=== PATIENT | female | born 1970 | race American Indian/Alaskan Native ===

== ENCOUNTER 2018-05-12 14:47 | Emergency (ER) | payer OTHER ==
[2018-05-12 14:56] VITALS: BP 137/86
[2018-05-12 15:23] LABS: Hemoglobin 11.2 gm/dl (10.1-14.3); Mean Corpuscular HGB Conc 32 % (30-34); Mean Corpuscular Volume 93 fl (79-97); Platelet Count 301 K/mm3 (140-440); Red Blood Count 3.75 M/mm3 (3.65-5.03); Red Cell Distribution Width 16.7 % (13.2-15.2)
--- NOTE | 2018-05-12 16:30 | Emergency Department Report ---
ED Abdominal Pain HPI - General Chief Complaint: Vaginal Bleeding Stated Complaint: BLEEDING/FEELING FAINT Time Seen by Provider: 05/12/18 16:11 Source: patient Mode of arrival: Ambulatory Limitations: No Limitations - History of Present Illness Initial Comments: Patient is a 48-year-old Martiniquais female has had 6 months of heavy vaginal bleeding. Patient has been seen numerous times by her LACEMAKER Dr. Basurto. Patient is currently taking Provera twice a day. Patient was here approximately a week and half ago had a CT of the abdomen done showed she does have uterine fibroids. Patient is scheduled for another LACEMAKER appointment in approximately 2 weeks. Patient over the weekend several days ago as having increased bleeding with clots as well as a feeling of faintness. Patient had no shortness of breath or chest discomfort. Patient states the faint feeling as resolve slightly but she still having a great deal of lower abdominal cramps. Patient also states that it is still changing her sanitary napkin hourly she is now changing every 3-4 hours. - Related Data Previous Rx's Medication Instructions Recorded Last Taken Type HYDROcodone/ACETAMINOPHEN [Ballantine 1 each PO Q6HR PRN #12 tablet 04/16/18 Unknown Rx 7.5-325 Tablet] Sulfamethoxazole/Trimethoprim 1 each PO BID 10 Days #20 tablet 04/16/18 Unknown Rx [Bactrim Ds Tablet] HYDROcodone/APAP 5-325 [Ballantine 1 each PO Q4HR PRN #10 tablet 05/12/18 Unknown Rx 5/325] Ibuprofen [Motrin] 800 mg PO Q8HR PRN #20 tablet 05/12/18 Unknown Rx Allergies Allergy/AdvReac Type Severity Reaction Status Date / Time fentanyl AdvReac Itching Verified 04/16/18 11:48 ED Review of Systems ROS: Stated complaint: BLEEDING/FEELING FAINT Other details as noted in HPI Comment: All other systems reviewed and negative ED Past Medical Hx - Past Medical History Previous Medical History?: No Hx Hypertension: Yes Additional medical history: Insomnia - Surgical History Past Surgical History?: Yes Hx Cholecystectomy: Yes (2010) Hx Breast Surgery: Yes (03/2006) Additional Surgical History: Hernia repair 09/2017, Right Rotator Cuff 2011, Left Rotator cuff 2016, Tendon repair right knee 2014, Right meniscus 2016, Left foot 2011, Right foot 2008, 02/2003 - Social History Smoking Status: Never Smoker Substance Use Type: None - Medications Home Medications: Home Medications Medication Instructions Recorded Confirmed Last Taken Type HYDROcodone/ACETAMINOPHEN [Ballantine 1 each PO Q6HR PRN #12 tablet 04/16/18 Unknown Rx 7.5-325 Tablet] Sulfamethoxazole/Trimethoprim 1 each PO BID 10 Days #20 tablet 04/16/18 Unknown Rx [Bactrim Ds Tablet] HYDROcodone/APAP 5-325 [Ballantine 1 each PO Q4HR PRN #10 tablet 05/12/18 Unknown Rx 5/325] Ibuprofen [Motrin] 800 mg PO Q8HR PRN #20 tablet 05/12/18 Unknown Rx ED Physical Exam - General Limitations: No Limitations General appearance: alert, in no apparent distress - Head Head exam: Present: atraumatic, normocephalic - Eye Eye exam: Present: normal appearance - ENT ENT exam: Present: mucous membranes moist - Neck Neck exam: Present: normal inspection - Respiratory Respiratory exam: Present: normal lung sounds bilaterally. Absent: respiratory distress, wheezes, rales, rhonchi - Cardiovascular Cardiovascular Exam: Present: regular rate, normal rhythm. Absent: systolic murmur, diastolic murmur, rubs, gallop - GI/Abdominal GI/Abdominal exam: Present: soft, tenderness (suprapubic tenderness), normal bowel sounds. Absent: distended, guarding, rebound, rigid - Extremities Exam Extremities exam: Present: normal inspection - Back Exam Back exam: Present: normal inspection - Neurological Exam Neurological exam: Present: alert, oriented X3 - Psychiatric Psychiatric exam: Present: normal affect, normal mood - Skin Skin exam: Present: warm, dry, intact, normal color. Absent: rash ED Course Vital Signs 05/12/18 14:53 Temperature 99.1 F Pulse Rate 98 H Respiratory 16 Rate Blood Pressure 137/86 O2 Sat by Pulse 98 Oximetry ED Medical Decision Making - Lab Data Result diagrams: 05/12/18 15:01 - Medical Decision Making Patient's hemoglobin is within normal limits and does not support a blood transfusion at this time. The patient be started on a yellow milligram Motrin for pain and bleeding as well as Vicodin. Patient told to call her LACEMAKER office to see if they can schedule her for a closer appointment. Critical care attestation.: If time is entered above; I have spent that time in minutes in the direct care of this critically ill patient, excluding procedure time. ED Disposition Clinical Impression: DUB (dysfunctional uterine bleeding) Disposition: DC-01 TO HOME OR SELFCARE Is pt being admited?: No Does the pt Need Aspirin: No Condition: Stable Referrals: PRIMARY CARE, [Primary Care Provider] - 3-5 Days Time of Disposition: 16:29
== END 2018-05-12 16:37 | disposition home or self-care (01) ==
LOC: ED 14:47
DX: O46.91 Antepartum hemorrhage, unspecified, first trimester (principal); Z3A.01 Less than 8 weeks gestation of pregnancy; I10 Essential (primary) hypertension; G47.00 Insomnia, unspecified; Z90.49 Acquired absence of other specified parts of digestive tract
CPT/HCPCS: 36415; 85027; 86850; 86900; 86901; 99283

== ENCOUNTER 2018-06-25 07:30 | Inpatient (IN) | payer OTHER ==
--- NOTE | 2018-06-23 11:51 | Anesthesia Consultation ---
Addendum entered and electronically signed by BRYANT GUSTAFSON MD 06/25/18 10:17: Patient HPI reviewed, physical exam completed, and plan was discussed. Notable history of panic attacks - took klonipin and metoprolol this morning. ASA 3 Original Note: Anesthesia Consult and Med Hx Date of service: 06/25/18 - Airway Anesthetic Teeth Evaluation: Good, Chipped ROM Head & Neck: Adequate Mental/Hyoid Distance: Adequate Mallampati Class: Class II Intubation Access Assessment: Good - Pre-Operative Health Status ASA Pre-Surgery Classification: ASA2 Proposed Anesthetic Plan: General Nerve Block: TAP - Cardiovascular System Hx Hypertension: Yes (x 15 yrs) Hx Cardia Arrhythmia: Yes (Tachy. Had cardiac w/u 2011 negative per pt) - Central Nervous System Hx Psychiatric Problems: Yes - Gastrointestinal Hx Gastroesophageal Reflux Disease: Yes (Occasional) - Other Systems Hx Alcohol Use: Yes Hx Cancer: No - Additional Comments Anesthesia Medical History Comments: SJOGREN'S Disease. LUPUS
[2018-06-23 12:22] LABS: BUN/Creatinine Ratio 6; Blood Urea Nitrogen 4 mg/dL (7-17); Calcium 9.1 mg/dL (8.4-10.2); Hemolysis Index 71
[2018-06-23 12:23] LABS: Basophils # (Auto) 0.1 K/mm3 (0.0-0.1); Basophils % (Auto) 1.1 % (0.0-1.8); Eosinophils # (Auto) 0.2 K/mm3 (0.0-0.4); Eosinophils % (Auto) 2.9 % (0.0-4.3); Hematocrit 33.2 % (30.3-42.9); Hemoglobin 10.6 gm/dl (10.1-14.3); Lymphocytes # (Auto) 2.4 K/mm3 (1.2-5.4); Lymphocytes % (Auto) 32.8 % (13.4-35.0); Mean Corpuscular HGB Conc 32 % (30-34); Mean Corpuscular Volume 88 fl (79-97); Monocytes # (Auto) 0.8 K/mm3 (0.0-0.8); Monocytes % (Auto) 10.6 % (0.0-7.3); Platelet Count 398 K/mm3 (140-440); Red Blood Count 3.78 M/mm3 (3.65-5.03); Red Cell Distribution Width 17.6 % (13.2-15.2)
--- NOTE | 2018-06-24 21:16 | History and Physical Report ---
History of Present Illness Date of examination: 06/23/18 Chief complaint: Pelvic pain, menometrorrhagia, fibroids, pelvic adhesion disease History of present illness: Past History : 4 Term Births: 1 Premature Births: 2 Living Children: 4 Para: 2 Mult. Births: 1 Prev : 2 Aborta: 2 Spont. 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 of genital herpes: no Partner hx. of genital herpes: no Hx of STD: None Active Medications (reviewed today): CLONAZEPAM TABLET (CLONAZEPAM TABS) MEDROXYPROGESTERONE ACETATE 10 MG ORAL TABLET (MEDROXYPROGESTERONE ACETATE) 1 po daily NEXIUM 5 MG ORAL PACKET (ESOMEPRAZOLE MAGNESIUM) VITAMIN D 1000 UNIT ORAL TABLET (CHOLECALCIFEROL) METOPROLOL TARTRATE 25 MG ORAL TABLET (METOPROLOL TARTRATE) LISINOPRIL 5 MG ORAL TABLET (LISINOPRIL) MAXZIDE TABLET (TRIAMTERENE-HCTZ TABS) Current Allergies (reviewed today): No known allergies Past Medical History: Reviewed history from 07/17/2017 and no changes required: Hypertension obesity [facility] Past Surgical History: Reviewed history from 05/10/2018 and no changes required: Breast Reduction: Gastric Bypass: Esophageal dilation x 4 Cholecystectomy Hernia repair (left side) 11/2016 (2017) mesh placed Knee Arthroscopy (2011 left) (2015)(R) repair quadricep(L) and meniscus(R) (L) rotator cuff repair (2016) Abdominoplasty x2 Family History Summary: Reviewed history Last on 04/21/2018 and no changes required:06/24/2018 MGM - Has Family History Breast Cancer - menopause - Entered On: 07/17/2017 Aunt - Has Family History of Ovarian Cancer - great maternal, menopause - Entered On: 07/17/2017 Other family member - Has No Family History of Biliary Tract Cancer - Entered On: 09/28/2017 Other family member - Has No Family History of Brain Cancer - Entered On: 09/28/2017 Other family member - Has No Family History of Colon Cancer - Entered On: 09/28/2017 Other family member - Has No Family History of Spontaneous DVT-PE - Entered On: 09/28/2017 Other family member - Has No Family History of Kidney/Urinary Tract Cancer - Entered On: 09/28/2017 Other family member - Has No Family History of Pancreatic Cancer - Entered On: 09/28/2017 Other family member - Has No Family History of Stomach Cancer - Entered On: 09/28/2017 Other family member - Has No Family History of Small Bowel Cancer - Entered On: 09/28/2017 Other family member - Has No Family History of Uterine Cancer - Entered On: 09/28/2017 General Comments - FH: Family History Breast Cancer- GM, 70s Social History: Reviewed history from 07/17/2017 and no changes required: Patient is Smoking History: Patient has never smoked. Risk Factors: Smoked Tobacco Use: Never smoker Smokeless Tobacco Use: Never Passive smoke exposure: no Drug use: no HIV high-risk behavior: no Alcohol use: no Exercise: no Seatbelt use: 100 % PAP Smear History: Date of Last PAP Smear: 04/22/2018 Previous Tobacco Use: Signed On 05/17/2018 Smoked Tobacco Use: Never smoker Smokeless Tobacco Use: Never Passive smoke exposure: no Drug use: no HIV high-risk behavior: no Caffeine use: 0 drinks per day Previous Alcohol Use: Signed On 05/17/2018 Alcohol use: no Exercise: no Seatbelt use: 100 % Mammogram History: Date of Last Mammogram: 02/17/2011 PAP Smear History: Date of Last PAP Smear: 04/22/2018 Physical Exam Other Exams Abdomen: soft, non-tender, no masses, multiple healed incisions Skin: no ulcers, xanthomas Impression & Recommendations: Problem # 1: Menometrorrhagia (ICD-626.2) (MUN14-F13.1) Diagnosis explained to patient . Discussed with patient various medical, surgical and radiological therapies common for treatment including, but not limited to, myomectomy, hysterectomy and uterine artery embolization. Discussed risks and benefits of laparotomy, laparoscopy, vaginal and robotic assisted approaches for hysterectomies.Due to multiple previoius abdominal procedures, abdominal approach to hysterectomy is recommended. Patient desires definitive treatment in the form of total abdominal hysterectomy. The risks and alternatives for this surgery were reviewed with the patient. She was informed of the risks of the surgery including, but not limited to, pain, infection, bleeding possibly heavy enough to require a blood transfusion with associated risks of infections (hepatitis and HIV) and transfusion reactions, possible damage to bowel, bladder or ureter(s). Patient understands that this surgery with make her sterile. She desires removal of both fallopian tubes and ovaries. Patient understands if her ovaries are removed she will become menopausal. Patient advised the small risks of spreading of malignancy if morcel lation is required during the surgery patient understands and approves performing if necessary. She was informed she will not be able to get after her uterus is removed. Questions answered. Consent reviewed and signed The patient was instructed/informed the following: The normal length of hospital stay for this procedure. Nothing to eat or drink after midnight the evening prior to surgery. Clear liquids the day before surgery. Pre-op instruction sheets given. Wound care instructions given. Problem # 2: Endometrial polyp (ICD-621.0) (WUZ84-Y56.0) Problem # 3: Fibroids of uterus; Intramural (ICD-218.1) (DUZ64-S87.1) Diagnosis explained to patient . Questions answered. Discussed with patient various medical, surgical and radioloigal therapies common for treatment: Hormonal/medical therapy, fibroid embolization, removal of fibroids or hys terectomy She was informed she will not be able to get after her uterus is removed. Problem # 4: Pelvic and perineal pain (ICD-789.00) (YNJ29-T29.2) Discussed use of hormone therapy. Risks reviewed with patient but not limited to:CVA, IN, DVT, PE, Breast cancer, liver problems. Patient counseled that she should use the lowest effective dose of HRT/ERT for the shortest period of time Other options for offered, encouraged to exercise, increase water intake, decrease Na+ and carbohydrate intake. . It was extensively explained to her that her pain may persist, recur or change in nature due to the difficulty with diagnosis chronic pelvic pain or development of adhesions. She declined other treatment options at this time Problem # 5: Family History of Ovarian Cancer (ICD-V16.41) (DBH94-T19.41) Medications and Allergies Allergies Allergy/AdvReac Type Severity Reaction Status Date / Time fentanyl AdvReac Itching Verified 06/15/18 18:26 Home Medications Medication Instructions Recorded Confirmed Last Taken Type Esomeprazole Magnesium [Nexium] 20 mg PO DAILY 06/15/18 06/15/18 Unknown History Lisinopril [Zestril] 5 mg PO QDAY 06/15/18 06/15/18 Unknown History Metoprolol [Lopressor] 25 mg PO BID 06/15/18 06/15/18 Unknown History Triamterene/Hydrochlorothiazid 1 tab PO DAILY 06/15/18 06/15/18 Unknown History [Triamterene-Hctz 37.5-25 mg Tb] clonazePAM [Clonazepam] 0.5 mg PO HS 06/15/18 06/15/18 Unknown History Active Meds: Active Medications Acetaminophen (Tylenol) 650 mg PO PREOP NR Stop: 06/25/18 23:59 Celecoxib (Celebrex) 200 mg PO PREOP NR Stop: 06/25/18 23:59 Gabapentin (Neurontin) 300 mg PO PREOP NR Stop: 06/25/18 23:59 Hydromorphone HCl (Dilaudid) 0.5 mg IV Q10MIN PRN PRN Reason: Pain , Severe (7-10) Stop: 06/26/18 23:00 Lactated Ringer's (Lactated Ringers) 1,000 mls @ 100 mls/hr IV DIRECT JOSE FRANCISCO Cefazolin Sodium (Ancef/Sterile Water 2 Gm/20 Ml) 2 gm in 20 mls @ 80 mls/hr IV PREOP NR; Protocol Midazolam HCl (Versed) 2 mg IV PREOP NR Stop: 06/25/18 23:00 Exam Vital Signs Temp Pulse Resp BP Pulse Ox 98.4 F 81 20 130/82 98 06/23/18 19:25 06/23/18 19:25 06/23/18 19:25 06/23/18 19:25 06/23/18 19:25 Results - Labs 06/23/18 11:20 06/23/18 11:20 Assessment and Plan - Patient Problems (1) Menometrorrhagia Status: Acute (2) Pelvic pain Status: Acute (3) Fibroids Status: Acute
[~2018-06-25 07:30] MED LIST: ANCEF/STERILE WATER 2 GM/20 ML 2 GM/20 ML SYRINGE IV NR; DILAUDID IV PRN; LACTATED RINGERS 1,000 ML IV SCH; NEURONTIN PO NR; TYLENOL PO NR; VERSED IV NR
[2018-06-25] MEDS ORDERED: MARCAINE 0.25% INFILTRATI ONE (09:10)
[2018-06-25] MEDS ORDERED: DECADRON ONE ×2 (09:10→15:11)
--- NOTE | 2018-06-25 10:24 | Anesthesia Day of Surgery ---
Anesthesia Day of Surgery - Day of Surgery Patient Examined: Yes Patient H&P Reviewed: Yes Patient is NPO: Yes Beta Blockers: Yes (metoprolol this am) Garfield's Test: N/A
[2018-06-25] MEDS ORDERED: DILAUDID ONE (12:04)
[2018-06-25] MEDS ORDERED: DIPRIVAN 10 MG/ML IV ONE (12:04)
[2018-06-25] MEDS ORDERED: XYLOCAINE MPF 2% ONE (12:05)
[2018-06-25] MEDS ORDERED: ZEMURON IV ONE ×2 (12:05→13:12)
[2018-06-25] MEDS ORDERED: ACD-A 500 ML IV ONE (12:35)
[2018-06-25] MEDS ORDERED: THROMBIN (BOVINE) TP ONE ×2 (12:35→12:39)
[2018-06-25] MEDS ORDERED: NACL 0.9% IR ONE ×2 (12:35→14:02)
[2018-06-25] MEDS ORDERED: CALCIUM CHLORIDE IV ONE ×2 (12:35→12:39)
[2018-06-25] MEDS ORDERED: Vasostrict ONE (12:53)
[2018-06-25] MEDS ORDERED: Vasostrict 20 UNIT in NACL 0.9% 100 ML INFILTRATI ONE (12:55)
[2018-06-25] MEDS ORDERED: LACTATED RINGERS 1,000 ML ONE ×2 (13:25→15:14)
[2018-06-25] MEDS ORDERED: ROBINUL ONE (14:50)
[2018-06-25] MEDS ORDERED: ZOFRAN ONE (14:50)
[2018-06-25] MEDS ORDERED: BLOXIVERZ ONE (14:50)
[2018-06-25] MEDS ORDERED: TORADOL ONE (14:50)
[2018-06-25] MEDS ORDERED: BENADRYL ONE (15:14)
[2018-06-25] MEDS ORDERED: PEPCID IV ONE (15:34)
[2018-06-25] MEDS ORDERED: NARCAN 0.4 MG/1 ML IV PRN (16:11)
[2018-06-25] MEDS ORDERED: BENADRYL IV PRN (16:11)
[2018-06-25] MEDS: DILAUDID PCA 6MG/30ML IV SCH (17:00)
--- NOTE | 2018-06-25 17:56 | Post Anesthesia Evaluation ---
- Post Anesthesia Evaluation Patient Participated: Yes Airway Patent: Yes Stable Respiratory Function: Yes Nausea/Vomiting: No Temp > 96.8F: Yes Pain Manageable: Yes Adequeate Hydration: Yes Anesthesia Complications: No Other Comments: After drapes removed, patient noted to have erythema hive-like rash on arms, torso, and legs. VSS, lung sounds clear, no evidence of airway edema or bronchospasm. Steroid, H1 and H2 antihystamines administerred and patient observed while intubated for >10mins until evidence of rash resolution. Patient extubated in OR without incident. Respiratory status remained stable while in PACU and rash significantly improved at time of transfer. Patient transferred to telemetry unit for monitoring overnight.
--- NOTE | 2018-06-25 19:09 | Operative Report ---
Operative Report Operative Report: Date: 06/25/2018 Preoperative diagnosis: 1. Menometrorrhagia 2. Uterine fibroids 3. Pelvic pain 4. Endometrial mass Postoperative diagnosis: 1. Menometrorrhagia 2. Uterine fibroids 3. Pelvic pain 4. Endometrial mass Procedure: 1. Supracervical abdominal hysterectomy 2. Bilateral salpingo-oophorectomy Surgeon: Jessica Basurto MD Ornamental Metalwork Designer: Jordyn Lyons Anesthesiologist: Dr. Fox Anesthesia: General anesthesia EBL: 300 mL; she was transfused 125 mL's of Cell Saver blood Procedure: After risk, benefits, complications, consequences and alternatives for this procedure were discussed with the patient and she voiced her understanding and desire to proceed, she was taken to the OR and placed in the supine position. General anesthesia was induced. A Ramirez catheter was introduced into her bladder. She was then prepped and draped in the usual sterile fashion. Timeout was performed. A Pfannenstiel incision was made and extended to the fascia which was incised and extended lateral direction. The overlying fascia was sharply dissected away from the underlying rectus muscles in the superior inferior direction. The midline was entered with both blunt and sharp dissection. The uterus was then elevated through the incision. The O'Guillermo O'Barajas self retaining retractor was placed. The bowel was secured in the upper moist laparotomy sponges and abdominal blade of the retractor. The bladder blade was then placed. Then using the Voyant open bilaterally fusion device the round ligaments were clamped, cauterized and incised bilaterally . With both blunt and sharp dissection the bladder flap was created. Attention was turned to the broad ligament, where the the utero-ovarian ligaments were both clamped and cauterized and incised bilaterally. The uterine vessels were then skeletonized bilaterally. The uterine vessels were then clamped, cauterized and incised bilaterally. The fundus of the uterus was excised for better visualization. The cardinal ligaments were then clamped, cut and suture ligated bilaterally. Attention was turned to the anterior aspect of the cervix with the bladder was further dissected away. However patient's pelvis very deep and concern for injury to surrounding organs was significant, especially the b ladder, therefore the decision was made to perform a supracervical hysterectomy. Large Keisha clamps were placed above the uterosacral ligaments. The remainder of the cervix was excised. The edges of the cervix suture ligated with 0 Vicryl in a Keisha stitch. The midline was closed using 0 Vicryl in 2 interrupted [id number] stitches. The pelvis was then irrigated copiously with warm normal saline. There was no obvious injury to ureters or bowel noted. Platelet rich plasma was applied to the operative field. Then platelet poor plasma was applied to the operative field. Again hemostasis was noted. The bladder and abdominal blades were removed. Laparotomy sponges were removed. Counts were correct 3. The remainder of the platelet poor plasma was applied to the bowel. The rectus muscles were approximated using 0 Vicryl in 3 interrupted simple stitches of 0 Vicryl. Once hemostasis was noted the fascia was reapproximated from distal to midline using 0 Vicryl in a simple running stitch. Adipose tissue was reapproximated using 0 Vicryl interrupted stitch fashion. The skin incision was approximated using 4-0 Monocryl in a subcuticular manner. Patient tolerated procedure well. Patient was taken to recovery room in stable condition additional drainage clearly urine through Ramirez catheter.
[2018-06-25] MEDS ORDERED: ZOFRAN IV PRN (23:37)
[2018-06-25] MEDS ORDERED: REGLAN PO PRN (23:37)
[2018-06-25] MEDS ORDERED: REGLAN IV PRN (23:37)
[2018-06-25] MEDS ORDERED: ZOFRAN ODT PO PRN (23:37)
[2018-06-25] MEDS ORDERED: TYLENOL PO PRN (23:37)
[2018-06-25] MEDS ORDERED: TYLENOL PR PRN (23:37)
[2018-06-26] MEDS: PERCOCET 5/325 PO PRN ×3 (00:33→20:09)
[2018-06-26] MEDS ORDERED: ANCEF/NS 1 GM/50 ML 1 GM/50 ML BAG IV SCH (01:00)
[2018-06-26 05:19] LABS: Hematocrit 34.2 % (30.3-42.9); Hemoglobin 10.9 gm/dl (10.1-14.3)
[2018-06-26] MEDS: ANCEF/NS 1 GM/50 ML 1 GM/50 ML BAG IV SCH ×2 (05:38→15:38)
[2018-06-26] MEDS: DILAUDID PCA 6MG/30ML IV SCH (05:50)
[2018-06-26] MEDS ORDERED: PROTONIX IV SCH (10:00)
[2018-06-26] MEDS: LOPRESSOR PO SCH (10:59)
[2018-06-26] MEDS: NACL 0.9% 1000 ML 1,000 ML IV SCH (11:01)
--- NOTE | 2018-06-26 11:05 | Progress Note ---
Assessment and Plan - Patient Problems (1) Status post laparoscopic supracervical hysterectomy Current Visit: Yes Status: Acute Plan to address problem: Postoperative day #1. Operative findings discussed with patient by Dr. Forte and questions answered. Patient without fever. Patient now without any evidence of allergic reaction. She denies any nausea vomiting. [facility]. We will continue routine postoperative care. Patient's postoperative hematocrit 34.2%. (2) Allergic reaction Current Visit: Yes Status: Resolved Qualifiers: Encounter type: initial encounter Qualified Code(s): T78.40XA - Allergy, unspecified, initial encounter (3) Hypertension Current Visit: Yes Status: Chronic Qualifiers: Hypertension type: essential hypertension Qualified Code(s): I10 - Essential (primary) hypertension Plan to address problem: We'll continue home medications (4) Morbid obesity Current Visit: Yes Status: Chronic Subjective Date of service: 06/26/18 Patient Reports: Positive: still having pain, pain is less, tolerating liquids well, flatus, no bowel movement, bowel movement, afebrile (complaining of hunger patient denies any itching or rash). Negative: nausea, vomiting Objective Vital Signs - 12hr 06/26/18 06/26/18 06/26/18 00:00 03:58 10:00 Temperature 98.4 F 98.3 F O2 Sat by Pulse 96 Oximetry - General physical appearance well developed, obese - Respiratory normal expansion - Abdomen soft, tender (appropriately), bowel sounds normal, surgical scars (healing well) - Integumentary no rash - Psychiatric oriented to time, oriented to person, oriented to place, speech is normal, memory intact - Labs 06/26/18 04:49 06/23/18 11:20
[2018-06-26] MEDS ORDERED: DIFLUCAN PO ONE (16:15)
[2018-06-26] MEDS: TORADOL IV PRN ×2 (16:27→23:19)
[2018-06-26] MEDS: BENADRYL PO PRN (17:09)
[2018-06-27] MEDS: BENADRYL PO PRN ×2 (00:16→20:15)
[2018-06-27] MEDS: LOPRESSOR PO SCH ×3 (00:57→21:43)
[2018-06-27] MEDS: PERCOCET 5/325 PO PRN ×3 (03:16→20:14)
[2018-06-27] MEDS: TORADOL IV PRN ×2 (08:22→16:41)
[2018-06-27] MEDS: PROTONIX PO SCH (09:52)
[2018-06-27] MEDS: MAXZIDE-25 PO SCH (09:55)
--- NOTE | 2018-06-27 10:20 | Progress Note ---
Assessment and Plan - Patient Problems (1) Status post laparoscopic supracervical hysterectomy Current Visit: Yes Status: Acute Plan to address problem: We'll continue routine care. Encouraged patient to ambulate. Tolerating regular diet well. Patient is afebrile. (2) Allergic reaction Current Visit: Yes Status: Resolved Qualifiers: Encounter type: initial encounter Qualified Code(s): T78.40XA - Allergy, unspecified, initial encounter (3) Hypertension Current Visit: Yes Status: Chronic Qualifiers: Hypertension type: essential hypertension Qualified Code(s): I10 - Essential (primary) hypertension (4) Morbid obesity Current Visit: Yes Status: Chronic (5) Draining postoperative wound Current Visit: Yes Status: Acute Qualifiers: Encounter type: initial encounter Qualified Code(s): T81.89XA - Other complications of procedures, not elsewhere classified, initial encounter Plan to address problem: Patient with some serosanguineous drainage from incision though evidence of infection seen. Will continue to watch will obtain wound care consultation to see tomorrow. Subjective Date of service: 06/27/18 Patient Reports: Positive: feels better, still having pain, pain is less, tolerating a regular diet, voiding w/o difficulty, flatus, nausea (has some yesterday today is better), afebrile, other (small amount of drainage from incision) Objective Vital Signs - 12hr 06/26/18 06/26/18 06/27/18 23:19 23:49 00:45 Temperature 99.1 F Pulse Rate 81 Respiratory 20 18 20 Rate Blood Pressure 129/76 Blood Pressure 129/76 [Left] O2 Sat by Pulse 97 Oximetry 06/27/18 06/27/18 06/27/18 00:57 03:16 04:16 Temperature Pulse Rate 84 Respiratory 18 18 Rate Blood Pressure 129/76 Blood Pressure [Left] O2 Sat by Pulse Oximetry 06/27/18 06/27/18 06/27/18 05:12 07:42 08:22 Temperature 98.7 F 98.6 F Pulse Rate 76 74 Respiratory 20 20 20 Rate Blood Pressure 100/58 136/84 Blood Pressure [Left] O2 Sat by Pulse 97 99 Oximetry - General physical appearance well developed, well nourished, moderate pain, obese - Respiratory normal respiratory effort - Abdomen tender (appropriate postop), bowel sounds normal, wound (small amount of serosanguineous drainage left and incision. No signs of infection) - Integumentary no rash, no growths, no abnormal pigmentation - Neurologic normal coordination, normal sensation - Psychiatric oriented to time, oriented to person, oriented to place, speech is normal, memory intact - Labs 06/26/18 04:49 06/23/18 11:20
[2018-06-27] MEDS: NACL 0.9% 1000 ML 1,000 ML IV SCH ×2 (12:40→20:06)
[2018-06-27] MEDS: ZESTRIL PO SCH (12:44)
[2018-06-27] MEDS ORDERED: COLACE PO PRN (17:50)
[2018-06-28] MEDS: TORADOL IV PRN (02:38)
[2018-06-28] MEDS: PERCOCET 5/325 PO PRN ×3 (05:32→16:58)
--- NOTE | 2018-06-28 09:06 | Progress Note ---
Assessment and Plan - Patient Problems (1) Allergic reaction Current Visit: Yes Status: Resolved Qualifiers: Encounter type: initial encounter Qualified Code(s): T78.40XA - Allergy, unspecified, initial encounter (2) Hypertension Current Visit: Yes Status: Chronic Qualifiers: Hypertension type: essential hypertension Qualified Code(s): I10 - Essential (primary) hypertension (3) Morbid obesity Current Visit: Yes Status: Chronic (4) Draining postoperative wound Current Visit: Yes Status: Acute Qualifiers: Encounter type: initial encounter Qualified Code(s): T81.89XA - Other complications of procedures, not elsewhere classified, initial encounter Plan to address problem: Wound care nurse to see today (5) S/P abdominal supracervical subtotal hysterectomy Current Visit: Yes Status: Acute Plan to address problem: Doing well postoperatively Subjective Date of service: 06/28/18 Patient Reports: Positive: feels better, pain is less, tolerating a regular diet, voiding w/o difficulty, flatus, afebrile Objective Vital Signs - 12hr 06/27/18 06/27/18 06/28/18 21:14 21:43 00:38 Temperature 98.4 F Pulse Rate 84 66 Pulse Rate [ Apical] Respiratory 18 22 Rate Blood Pressure 130/80 Blood Pressure 109/74 [Left] O2 Sat by Pulse 97 Oximetry 06/28/18 06/28/18 06/28/18 02:38 03:08 04:00 Temperature 98.5 F Pulse Rate 80 Pulse Rate [ Apical] Respiratory 18 20 18 Rate Blood Pressure Blood Pressure 122/75 [Left] O2 Sat by Pulse 97 Oximetry 06/28/18 06/28/18 06/28/18 05:32 06:32 07:30 Temperature Pulse Rate Pulse Rate [ 82 Apical] Respiratory 20 18 18 Rate Blood Pressure Blood Pressure [Left] O2 Sat by Pulse Oximetry 06/28/18 08:32 Temperature 98.2 F Pulse Rate 73 Pulse Rate [ Apical] Respiratory 16 Rate Blood Pressure 123/78 Blood Pressure [Left] O2 Sat by Pulse 94 Oximetry - General physical appearance well developed, well nourished, no distress - Respiratory normal respiratory effort - Abdomen soft, bowel sounds normal, surgical scars (bandage was dry) - Integumentary no rash, no growths, no abnormal pigmentation - Neurologic normal coordination, normal sensation - Psychiatric oriented to time, oriented to person, oriented to place, speech is normal, memory intact - Labs 06/26/18 04:49 06/23/18 11:20
[2018-06-28] MEDS: MAXZIDE-25 PO SCH (10:49)
[2018-06-28] MEDS: PROTONIX PO SCH (10:49)
[2018-06-28] MEDS: LOPRESSOR PO SCH ×2 (10:49→22:00)
[2018-06-28] MEDS: ZESTRIL PO SCH (10:50)
--- NOTE | 2018-06-28 11:52 | Event Note ---
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 No drainage today as far, will evaluated later today, possibly allow home this pm. Pt agrees with plan of care
--- NOTE | 2018-06-28 17:38 | Progress Note ---
Assessment and Plan POD#3 s/p supracervical abdominal hysterectomy history of poor fascial integrity( s/p ventral hernia repair x2 ) No obvious evidence of wound breakdown however still with serous drainage Will observe overnight and ? allow home if no further drainage Findings, concerns and plan of care explained, questions encouraged and answered, she voiced understanding and agrees with plan - Patient Problems (1) S/P abdominal supracervical subtotal hysterectomy Current Visit: Yes Status: Acute (2) Status post bilateral salpingo-oophorectomy Current Visit: Yes Status: Acute (3) Wound drainage Current Visit: Yes Status: Acute Plan to address problem: no s/s infection ABD pad changed, small amount of serous drainage noted on prior pad, no drainage when examination of incision (4) Menometrorrhagia Current Visit: No Status: Resolved (5) Pelvic pain Current Visit: No Status: Resolved (6) Fibroids Current Visit: No Status: Resolved Subjective Date of service: 06/28/18 Patient Reports: Positive: no new complaints, feels better, tolerating a regular diet, voiding w/o difficulty, afebrile Objective Vital Signs - 12hr 06/28/18 06/28/18 06/28/18 06:32 07:30 08:32 Temperature 98.2 F Pulse Rate 73 Pulse Rate [ 82 Apical] Respiratory 18 18 16 Rate Blood Pressure 123/78 O2 Sat by Pulse 94 Oximetry 06/28/18 11:44 Temperature 98.6 F Pulse Rate 73 Pulse Rate [ Apical] Respiratory 20 Rate Blood Pressure 135/83 O2 Sat by Pulse 95 Oximetry - General physical appearance well developed, well nourished, no distress - Respiratory normal expansion, normal respiratory effort - Abdomen soft, bowel sounds normal, surgical scars (Additional drainage on pad, incision intact, no defects, no s/s infection. ? ecchymosis at mons) - Psychiatric oriented to time, oriented to person, oriented to place, speech is normal, geraldine ry intact - Labs 06/26/18 04:49 06/23/18 11:20
[2018-06-29] MEDS: PERCOCET 5/325 PO PRN ×4 (00:20→21:04)
[2018-06-29] MEDS: LOPRESSOR PO SCH ×2 (10:35→21:12)
[2018-06-29] MEDS: MAXZIDE-25 PO SCH (10:35)
[2018-06-29] MEDS: ZESTRIL PO SCH (10:35)
[2018-06-29] MEDS: PROTONIX PO SCH (10:36)
--- NOTE | 2018-06-29 11:40 | Progress Note ---
Assessment and Plan - Patient Problems (1) S/P abdominal supracervical subtotal hysterectomy Current Visit: Yes Status: Acute (2) Status post bilateral salpingo-oophorectomy Current Visit: Yes Status: Acute (3) Wound drainage Current Visit: Yes Status: Acute Plan to address problem: Had bright red blood on ABD pad from last pm, again serous drainage noted on pad today. Will proceed with CT scan to evaluate for fascial dehiscence. Concerns and plan of care discussed with patient, she voiced understanding and agrees to proceed (4) Menometrorrhagia Current Visit: No Status: Resolved (5) Pelvic pain Current Visit: No Status: Resolved (6) Fibroids Current Visit: No Status: Resolved Subjective Date of service: 06/29/18 Patient Reports: Positive: no new complaints, tolerating a regular diet, voiding w/o difficulty, flatus, bowel movement, afebrile. Negative: nausea, vomiting Objective Vital Signs - 12hr 06/29/18 06/29/18 06/29/18 00:00 04:32 07:24 Temperature 98.6 F 98.6 F 98.4 F Pulse Rate 72 73 78 Pulse Rate [ Apical] Respiratory 17 18 20 Rate Blood Pressure 124/68 Blood Pressure 114/72 125/70 [Left] O2 Sat by Pulse 96 Oximetry 06/29/18 07:35 Temperature Pulse Rate Pulse Rate [ 78 Apical] Respiratory 18 Rate Blood Pressure Blood Pressure [Left] O2 Sat by Pulse Oximetry - General physical appearance well developed, well nourished, no distress - Abdomen soft, bowel sounds normal, surgical scars (intact, no s/s infection) - Neurologic normal coordination - Psychiatric oriented to time, oriented to person, oriented to place, speech is normal, memory intact - Labs 06/26/18 04:49 06/23/18 11:20
[2018-06-29] MEDS ORDERED: ZOFRAN ODT PO NR (12:00)
--- NOTE | 2018-06-29 14:57 | Cat Scan Report ---
CT ABDOMEN PELVIS WITH CONTRAST: HISTORY: Abdominal pain, recent hysterectomy, drainage at surgical site. COMPARISON: 04/16/18. TECHNIQUE: Helical CT in 1.25mm intervals following IV contrast. Sagittal and coronal reconstructions. FINDINGS: Lung bases: Normal. Liver: Normal. Biliary system: Cholecystectomy. No biliary dilatation. Pancreas: Normal. Spleen: Normal. Kidneys/ureters/bladder: Normal. Adrenal glands: Normal. Aorta: Normal. Intestines: Within normal limits. No evidence for bowel obstruction or focal inflammation. Appendix: Normal. Pelvic viscera: Total hysterectomy changes are suspected since the previous examination. The vaginal cuff is unremarkable. No evidence for pelvic abscess or inflammation. There are no obvious findings of fascial dehiscence at the surgical site. Previous ventral wall hernia changes are noted and intact. There is a small amount of unorganized fluid in the anterior pelvic subcutaneous tissues but no evidence for mature abscess. Ascites: None. Adenopathy: None. Musculoskeletal: Intact. Mild lumbar spondylosis is noted. IMPRESSION: Recent hysterectomy changes are suspected. There is no evidence for fascial dehiscence at the surgical site. There is a small amount of unorganized fluid in the subcutaneous tissues of the anterior pelvic wall. This could explain the drainage at the surgical site. This does not have the typical appearance of an abscess. No fistulous tract is suspected.
--- NOTE | 2018-06-29 19:10 | Discharge Summary ---
Providers - Providers Date of Admission: 06/25/18 08:05 Date of discharge: 06/29/18 Attending physician: BUCK LEWIS 06/27/18 10:22 Consult to Wound/ET Nurse [CONS] Routine Reason For Exam: wound eval Primary care physician: SHELIA EUBANKS MD Hospitalization Condition: Good Procedures: Supracervical abdominal hysterectomy with BSO Hospital course: Complicated by hives that developed intraoperatively while still intubated with respiratory compromise. Hives resolved with Solucortef, Decadron , Benadryl and Pepcid. She was observed in IMCU overnight. She was transferred to the floor and had good UO and return of bowel function however she had significant drainage from her incision on POD#2. That decreased by POD#3 however later that pm she had bright red blood from the incision. No symptoms or evidence of intraabdominal bleeding however CT scan was performed to assess for fasical dehiscence. CT only revealed small subcutaneous fluid. Scant serous drainage noted on pad at this time will allow home. Disposition: DC-01 TO HOME OR SELFCARE - Discharge Diagnoses (1) S/P abdominal supracervical subtotal hysterectomy Status: Acute (2) Status post bilateral salpingo-oophorectomy Status: Acute (3) Wound drainage Status: Acute (4) Menometrorrhagia Status: Resolved (5) Pelvic pain Status: Resolved (6) Fibroids Status: Resolved Core Measure Documentation - Palliative Care Palliative Care/ Comfort Measures: Not Applicable - Core Measures Any of the following diagnoses?: none Exam - Constitutional Vitals: Temp Pulse Resp BP Pulse Ox 99.3 F 81 24 141/77 100 06/29/18 16:18 06/29/18 16:18 06/29/18 16:18 06/29/18 16:18 06/29/18 16:18 General appearance: Present: no acute distress (ambulating in room) - Respiratory Respiratory effort: normal Plan Activity: other (NO sex, no driving, ambulate ~1mile on your property a day. use your incentive spirometer every hours while awake. Void every 1-2 hours) Weight Bearing Status: Weight Bear as Tolerated Diet: low fat, low cholesterol, low salt (Eat small meals frequently, avoid spicy, fatty, high sodium foods. Drink ~110oz water a day) Wound: open to air, keep clean and dry Special Instructions: no heavy lifting (>15pounds) Follow up with: SHELIA EUBANKS MD [Primary Care Provider] - (Please discuss medications with Dr. Eubanks tomorrow) BUCK LEWIS MD [Staff Physician] - (As scheduled) Prescriptions: oxyCODONE /ACETAMINOPHEN [Percocet 5/325 mg] 1 - 2 tab PO Q4HR PRN #30 tablet PRN Reason: Pain
[2018-06-29 21:13] VITALS: BP 136/88
== END 2018-06-29 22:30 | disposition home or self-care (01) | DRG 743 ==
LOC: 3A 08:05 → EEVIPCON 08:05 → IMCU 17:04 → OB 06-26 15:27
PROVIDERS: ADMIT Obstetrics & Gynecology; ATTEND Obstetrics & Gynecology
PROC: 0UT90ZL Resection of Uterus, Supracervical, Open Approach (ICD-10-PCS; principal; 2018-06-25)
PROC: 0UT70ZZ Resection of Bilateral Fallopian Tubes, Open Approach (ICD-10-PCS; 2018-06-25)
PROC: 0UT20ZZ Resection of Bilateral Ovaries, Open Approach (ICD-10-PCS; 2018-06-25)
DX: D25.1 Intramural leiomyoma of uterus (principal); N92.1 Excessive and frequent menstruation with irregular cycle; K21.9 Gastro-esophageal reflux disease without esophagitis; I10 Essential (primary) hypertension; T78.40XA Allergy, unspecified, initial encounter; N84.0 Polyp of corpus uteri; M32.9 Systemic lupus erythematosus, unspecified; L50.9 Urticaria, unspecified; M35.00 Sjogren syndrome, unspecified; X58.XXXA Exposure to other specified factors, initial encounter; E66.01 Morbid (severe) obesity due to excess calories; Z80.3 Family history of malignant neoplasm of breast; Z90.49 Acquired absence of other specified parts of digestive tract; Z80.41 Family history of malignant neoplasm of ovary; Z88.8 Allergy status to other drugs, medicaments and biological substances; Z79.899 Other long term (current) drug therapy; Z68.39 Body mass index [BMI] 39.0-39.9, adult
CPT/HCPCS: 36415; 64450; 74177; 80048; 85014; 85018; 85025; 86850; 86900; 86901; 88305; 88307; G0378; C9113; J0690; J1100; J1170; J1200; J1720; J1885; J2250; J2405; J2704; J2710; J7030; J7120; Q0162; Q9967

== ENCOUNTER 2020-07-13 09:43 | Day surgery (SDC) | payer MEDICAID ==
[~2020-07-13 09:43] MED LIST changes: -ANCEF/STERILE WATER 2 GM/20 ML 2 GM/20 ML SYRINGE IV NR; -DILAUDID IV PRN; -LACTATED RINGERS 1,000 ML IV SCH; -NEURONTIN PO NR; +SODIUM CHLORIDE 0.9% 1000 ML 1,000 ML IV SCH; -TYLENOL PO NR; -VERSED IV NR
[2020-07-13] MEDS ORDERED: MIDAZOLAM 2 MG/2 ML INJ IV PRN (10:10)
--- NOTE | 2020-07-13 10:25 | Anesthesia Consultation ---
Anesthesia Consult and Med Hx Date of service: 07/13/20 - Airway Anesthetic Teeth Evaluation: Good ROM Head & Neck: Adequate Mental/Hyoid Distance: Adequate Mallampati Class: Class II Intubation Access Assessment: Probably Good - Pre-Operative Health Status ASA Pre-Surgery Classification: ASA3 Proposed Anesthetic Plan: MAC - Pulmonary Hx Smoking: No Hx Respiratory Symptoms: No - Cardiovascular System Hx Hypertension: Yes (took metoprolol this morning) Hx Heart Attack/AMI: No Hx Percutaneous Transluminal Coronary Angioplasty (PTCA): No Hx Cardia Arrhythmia: Yes (tachycardia; neg cardiac w/u (ST, TTE, EKG) 05/2020 per patient) Hx Pacemaker: No Hx Internal Defibrillator: No - Central Nervous System CVA: No Hx Psychiatric Problems: Yes (anxiety) - Gastrointestinal Hx Gastroesophageal Reflux Disease: Yes - Endocrine Hx Renal Disease: No Hx Liver Disease: No Hx Insulin Dependent Diabetes: No Hx Non-Insulin Dependent Diabetes: No Hx Thyroid Disease: No - Other Systems Hx Obesity: Yes (BMI 42) - Additional Comments Anesthesia Medical History Comments: No hx anesthetic complications.
--- NOTE | 2020-07-13 10:25 | Anesthesia Day of Surgery ---
Anesthesia Day of Surgery - Day of Surgery Patient Examined: Yes Patient H&P Reviewed: Yes Patient is NPO: Yes Beta Blockers: Yes (metoprolol 07/13/20 0800)
[2020-07-13] MEDS ORDERED: MIDAZOLAM 2 MG/2 ML INJ ONE (11:10)
[2020-07-13] MEDS ORDERED: fentaNYL 100 MCG/2 ML INJ ONE (12:01)
[2020-07-13] MEDS ORDERED: propofoL 200 MG/20 ML VIAL IV ONE (12:02)
--- NOTE | 2020-07-13 12:31 | Procedure Note ---
Date of procedure: 07/13/20 Pre-op diagnosis: Dysphagia/ S/P Gastric Bypass Post-op diagnosis: other (Mild, Benign Esophageal Stenosis/ S/P Gastric Bypass/ Mild, Distal Esophagitis) Procedure: EGD with Biopsy and EsophagealBalloon Dilation Anesthesia: MAC Surgeon: JOSE HAYDEN Estimated blood loss: minimal Pathology: list Specimen disposition: to lab Condition: stable Disposition: same day (Treat with PPI and Regaln. Avoid aspirin and NSAID for 5 days; otherwise resume home medication and follow up in 1 to 2 weeks ([phone]).)
[2020-07-13] MEDS ORDERED: KETOROLAC 30 MG/1 ML INJ IV ONE (12:42)
[2020-07-13] MEDS ORDERED: ACETAMINOPHEN 500 MG TAB PO ONE (12:44)
[2020-07-13 13:18] VITALS: BP 118/77
--- NOTE | 2020-07-13 13:27 | Post Anesthesia Evaluation ---
- Post Anesthesia Evaluation Patient Participated: Yes Airway Patent: Yes Stable Respiratory Function: Yes Nausea/Vomiting: No Temp > 96.8F: Yes Pain Manageable: Yes Adequeate Hydration: Yes Anesthesia Complications: No
--- NOTE | 2020-07-13 15:21 | Operative Report ---
PROCEDURE: Esophagogastroduodenoscopy with biopsy and esophageal dilation. INDICATIONS: This is a 50-year-old obese -[place] female with a prior history of gastric bypass. Lately, she has been having some problems with dysphagia. She has a prior history of benign esophageal stenosis. Last EGD with dilation was done a few years back. A repeat EGD with dilation was again done during this procedure. DESCRIPTION OF PROCEDURE: The procedure was done after getting informed consent with MAC anesthesia. Instrument was passed through the hypopharynx into the esophagus. Biopsy was done from the distal esophagus as well as from the mid esophagus to assess for the severity of erosive esophagitis and to rule out for any eosinophilic esophagitis. At the end of the procedure, the esophagus was dilated with a 20 mm balloon that was maintained for a minute. The stomach showed small gastric remnants; and because of the gastric bypass, the afferent loop ____ appeared to be normal, though there was a blind pouch. Biopsy was done from the gastric remnant with minimal bleeding to rule out for H. pylori. ASSESSMENT: Dysphagia, mild benign esophageal stenosis, status post gastric bypass, esophagitis, gastritis, status post esophageal dilation. PLAN: To treat the patient with PPI, have the patient avoid aspirin and aspirin-related products. Await for the biopsy results. Further adjustment of treatment will be according to the biopsy findings. The patient will be asked to follow up in the office in 1-2 weeks' time. The procedure was done in the GI lab with assistance of the GI lab team, which included RN, Aisha Rich; Tato chopra, and with assistance of anesthesia. JOB# [id number] BILL/RADHA
[2020-07-14] MEDS ORDERED: MIDAZOLAM 2 MG/2 ML INJ IV NR (06:00)
== END 2020-07-13 13:00 | disposition home or self-care (01) ==
LOC: GIO 09:43
DX: R13.10 Dysphagia, unspecified (principal); K22.2 Esophageal obstruction; K31.89 Other diseases of stomach and duodenum; K29.70 Gastritis, unspecified, without bleeding; I10 Essential (primary) hypertension; E66.01 Morbid (severe) obesity due to excess calories; G43.909 Migraine, unspecified, not intractable, without status migrainosus; K21.00 Gastro-esophageal reflux disease with esophagitis, without bleeding; F41.9 Anxiety disorder, unspecified; Z88.5 Allergy status to narcotic agent; Z79.899 Other long term (current) drug therapy; Z90.711 Acquired absence of uterus with remaining cervical stump; Z90.722 Acquired absence of ovaries, bilateral; Z90.49 Acquired absence of other specified parts of digestive tract; Z98.891 History of uterine scar from previous surgery; Z98.890 Other specified postprocedural states
CPT/HCPCS: 43239; 43249; 88305; 88342; C1726; J2250; J2704; J3010; J7030

== ENCOUNTER 2021-03-29 09:03 | Day surgery (SDC) | payer MEDICAID ==
[2021-03-29] MEDS ORDERED: SODIUM CHLORIDE 0.9% 1000 ML 1,000 ML ONE (09:32)
--- NOTE | 2021-03-29 09:40 | Anesthesia Consultation ---
Anesthesia Consult and Med Hx Date of service: 03/29/21 - Airway Anesthetic Teeth Evaluation: Good ROM Head & Neck: Adequate Mental/Hyoid Distance: Adequate Mallampati Class: Class II Intubation Access Assessment: Good - Pulmonary Exam CTA: Yes - Cardiac Exam Cardiac Exam: No Murmur - Pre-Operative Health Status ASA Pre-Surgery Classification: ASA2 Proposed Anesthetic Plan: MAC - Pulmonary Hx Smoking: No Hx Respiratory Symptoms: No Hx Sleep Apnea: Yes - Cardiovascular System Hx Hypertension: Yes (took metoprolol this morning) Hx Heart Attack/AMI: No Hx Percutaneous Transluminal Coronary Angioplasty (PTCA): No Hx Cardia Arrhythmia: Yes (tachycardia; neg cardiac w/u (ST, TTE, EKG) 05/2020 per patient) Hx Pacemaker: No Hx Internal Defibrillator: No - Central Nervous System CVA: No Hx Psychiatric Problems: Yes (anxiety) - Gastrointestinal Hx Gastroesophageal Reflux Disease: Yes - Endocrine Hx Renal Disease: No Hx Liver Disease: No Hx Insulin Dependent Diabetes: No Hx Non-Insulin Dependent Diabetes: No Hx Thyroid Disease: No - Other Systems Hx Alcohol Use: Yes Hx Cancer: No Hx Obesity: Yes (BMI 42)
--- NOTE | 2021-03-29 09:41 | Anesthesia Day of Surgery ---
Anesthesia Day of Surgery - Day of Surgery Patient Examined: Yes Patient H&P Reviewed: Yes Patient is NPO: Yes
[2021-03-29] MEDS ORDERED: LIDOCAINE MPF (2%) 20 MG/1 ML VIAL 5 ML ONE (09:42)
[2021-03-29] MEDS ORDERED: propofoL 200 MG/20 ML VIAL IV ONE ×2 (09:42)
--- NOTE | 2021-03-29 10:23 | Procedure Note ---
Date of procedure: 03/29/21 Pre-op diagnosis: Dysphagia Post-op diagnosis: other (Moderate, Kimberly Esophagitis (mid Esophagus)/ Mild, Benign Esophageal Stenosis (s/p Esophageal, Balloon dilation)/ Gastritis/ S/p Gastric Bypass) Procedure: EGD with Biopsy Anesthesia: MAC Surgeon: JOSE HAYDEN Estimated blood loss: minimal Pathology: list Specimen disposition: to lab Condition: stable Disposition: same day (Treat with Fluconazole and PPi; avoid aspirin and NSAID for 5 days,otherwise resume home medication and F/U in 1 to 2 weeks ([phone]).)
--- NOTE | 2021-03-29 10:38 | Operative Report ---
DATE OF SURGERY: 03/29/2021 PROCEDURE: Esophagogastroduodenoscopy with biopsy and status post balloon dilation using a 20 mm balloon. INDICATIONS: This is a 51-year-old -French female with prior history of gastric bypass who lately has been complaining of some dysphagia. She had previously had some dysphagia and had required some balloon dilation at that time. EGD was again done to assess for her issues. DESCRIPTION OF PROCEDURE: Procedure was done after getting informed consent with MAC anesthesia. The instrument was passed through the hypopharynx into the esophagus, which showed moderate Kimberly esophagitis, which may have contributed to the patient's dysphagia. In addition, the patient had mild benign esophageal stenosis and underwent 20 mm balloon dilation that was maintained for a minute, which was done at the end of the procedure. An additional biopsy was done from the mid esophagus to assess for the Kimberly esophagitis. The patient had a small gastric remnant. She is status post gastric bypass and a biopsy was done remaining from the small gastric remnant to assess for possible H. pylori. Biopsy was also done from the mid esophagus to assess for Kimberly esophagitis. ASSESSMENT: Dysphagia possibly mainly secondary to moderate Kimberly esophagitis; mild benign esophageal stenosis, status post dilation and gastritis, status post gastric bypass, gastritis. PLAN: Treat the patient with PPI as well as fluconazole for 10 days. Avoid aspirin and aspirin-related products and have the patient follow up in the office in 1-2 weeks' time. This procedure was done in the GI lab with assistance of the GI lab team, which included the GI nurse, the technology applications engineer and with assistance of anesthesia. TID: [id number] RECEIPT: [id number] BILL/HAYDEE
[2021-03-29] MEDS ORDERED: WATER FOR IRRIG STERILE 250 ML BOTTLE IR ONE (17:24)
[2021-03-29] MEDS ORDERED: WATER FOR IRRIG STERILE 1,000 ML BOTTLE ONE (17:24)
--- NOTE | 2021-03-29 17:42 | Post Anesthesia Evaluation ---
- Post Anesthesia Evaluation Patient Participated: Yes Airway Patent: Yes Stable Respiratory Function: Yes Nausea/Vomiting: No Temp > 96.8F: Yes Pain Manageable: Yes Adequeate Hydration: Yes Anesthesia Complications: No Block Receding Appropriately: Not Applicable Patient on Ventilator: No
[2021-03-29 21:46] VITALS: BP 112/63
== END 2021-03-29 09:04 | disposition home or self-care (01) ==
LOC: GIO 09:03
DX: R13.10 Dysphagia, unspecified (principal); K21.00 Gastro-esophageal reflux disease with esophagitis, without bleeding; K29.50 Unspecified chronic gastritis without bleeding; K31.89 Other diseases of stomach and duodenum; I10 Essential (primary) hypertension; G47.30 Sleep apnea, unspecified; F41.9 Anxiety disorder, unspecified; E66.01 Morbid (severe) obesity due to excess calories; Z79.899 Other long term (current) drug therapy; Z90.49 Acquired absence of other specified parts of digestive tract; Z98.890 Other specified postprocedural states; Z68.41 Body mass index [BMI] 40.0-44.9, adult
CPT/HCPCS: 43239; 43249; 88305; 88312; 88342; C1726; J2704; J3490; J7030; J7120; Q0162

== ENCOUNTER 2021-10-25 08:08 | Day surgery (SDC) | payer MEDICAID ==
[~2021-10-25 08:08] MED LIST changes: +WATER FOR IRRIG STERILE 1,000 ML BOTTLE ONE; +WATER FOR IRRIG STERILE 250 ML BOTTLE IR ONE
--- NOTE | 2021-10-25 09:16 | Anesthesia Day of Surgery ---
Anesthesia Day of Surgery - Day of Surgery Patient Examined: Yes Patient H&P Reviewed: Yes Patient is NPO: Yes
[2021-10-25] MEDS ORDERED: propofoL 200 MG/20 ML VIAL IV ONE ×2 (09:22→10:02)
[2021-10-25] MEDS ORDERED: fentaNYL 100 MCG/2 ML INJ ONE (09:22)
--- NOTE | 2021-10-25 09:23 | Anesthesia Consultation ---
Anesthesia Consult and Med Hx Date of service: 10/25/21 - Airway Anesthetic Teeth Evaluation: Good, Caps, Crowns ROM Head & Neck: Adequate Mental/Hyoid Distance: Adequate Mallampati Class: Class II Intubation Access Assessment: Good - Pre-Operative Health Status ASA Pre-Surgery Classification: ASA3 Proposed Anesthetic Plan: MAC - Pulmonary Hx Smoking: No Hx Asthma: Yes (RAD s/p COVID) Hx Respiratory Symptoms: No Hx Sleep Apnea: Yes - Cardiovascular System Hx Hypertension: Yes Hx Heart Attack/AMI: No Hx Percutaneous Transluminal Coronary Angioplasty (PTCA): No Hx Cardia Arrhythmia: Yes (tachycardia; neg cardiac w/u (ST, TTE, EKG) 05/2020 per patient) Hx Pacemaker: No Hx Internal Defibrillator: No - Central Nervous System CVA: No Hx Psychiatric Problems: Yes (anxiety) - Gastrointestinal Hx Gastroesophageal Reflux Disease: Yes - Endocrine Hx Renal Disease: No Hx Liver Disease: No Hx Insulin Dependent Diabetes: No Hx Non-Insulin Dependent Diabetes: Yes Hx Thyroid Disease: No - Hematic Hx Sickle Cell Disease: No - Other Systems Hx Alcohol Use: Yes Hx Cancer: No Hx Obesity: Yes (BMI 39)
--- NOTE | 2021-10-25 10:19 | Procedure Note ---
Date of procedure: 10/25/21 Pre-op diagnosis: Dysphagia/ colon Polyp Screening/ H/O Colon Polyps Post-op diagnosis: other (Moderate, Kimberly Esophagitis/ Mild, Benign Esophageal Stenosis (s/p Balloon dilation)/ Gastritis/ S/P Gastric Bypass/ No Colon Polyps noted/ Moderate, Left Colon Diverticular disease/ Minor,Internal Hemorrhoids) Procedure: EGD with Biopsy and s/p Balloon dilation (20 mm)/ Colonoscopy Anesthesia: [facility] [place] Surgeon: JOSE HAYDEN Estimated blood loss: minimal Pathology: list Specimen disposition: to lab Condition: stable Disposition: same day (Avoid aspirin and NSAID for 5 days. Encourage fiber intake,treat with PPI and Fluconazole. Avoid aspirin ad NSAID for 5 days; otherwise resume previous medication and F/U in 1 to 2 weeks ([phone]).)
--- NOTE | 2021-10-25 10:24 | Operative Report ---
DATE OF SURGERY: 10/25/2021 PROCEDURE: EGD with biopsy and esophageal balloon dilation. INDICATIONS: This is a 51-year-old -[place] female who has underlying history of diabetes mellitus type 2. She is on the BiPAP machine and is status post gastric bypass. Lately, she has been having some problems with dysphagia. She has a prior history of Kimberly esophagitis. EGD was done to assess for the upper GI symptoms. DESCRIPTION OF PROCEDURE: Procedure was done after getting informed consent with MAC anesthesia. The instrument was passed through the hypopharynx into the esophagus, which showed moderate Kimberly esophagitis. Photodocumentation and biopsy was obtained. There was some mild benign esophageal stenosis. This was dilated at the end of the procedure with a 20 mm balloon that was maintained for a minute. Stomach showed gastritis in the gastric remnant. There was a gastric bypass present. The afferent and efferent loops of small bowel appeared normal. Biopsy was done from the small gastric remnant to rule out for H. pylori. Additional biopsy was done from the mid esophagus to assess for the severity of the Kimberly esophagitis and as mentioned above, esophagus was dilated for a minute with a 20 mm balloon that was maintained for a minute. There was minimal bleeding associated with the procedure. No complications associated with the procedure. ASSESSMENT: Dysphagia, mild benign esophageal stenosis, status post balloon dilation with a 20 mm balloon, moderate Kimberly esophagitis, gastritis, status post gastric bypass. PLAN: To treat the patient with proton pump inhibitor and also fluconazole. Have the patient avoid aspirin and aspirin-related products for the next few days. A colonoscopy is to be done for further assessment of colon polyp. She has a prior history of colon polyps. Procedure was done in the GI lab with assistance of the GI lab team, which included the GI nurse, the fiber technologist and with assistance of Anesthesia. The patient will be asked to follow up in the office in 1-2 weeks' time. TID: [id number] RECEIPT: [id number] BILL/KIT
--- NOTE | 2021-10-25 10:27 | Operative Report ---
DATE OF SURGERY: 10/25/2021 PROCEDURE: Colonoscopy. INDICATIONS: This is a 51-year-old -[place] female with underlying history of diabetes mellitus, status post gastric bypass. EGD was done prior to the colonoscopy, which showed moderate Kimberly esophagitis and mild benign esophageal stenosis as well as gastritis and evidence of gastric bypass. Colonoscopy was done as part of colon polyp screening and also because of the patient's prior history of colon polyps. Initial rectal examination was unremarkable. DESCRIPTION OF PROCEDURE: Instrument was passed through the rectum onto the cecum, which was identified with ileocecal valve and appendiceal orifice. Visualization was fair to good. Cecum, ascending colon, transverse colon showed normal mucosa. There was moderate left colon diverticular disease noted and the rectum showed some minor internal hemorrhoid on the retroverted view. No colon polyps were seen this time. There was no biopsies done. There was no blood loss associated with the colonoscopy and no complications associated with the procedure. ASSESSMENT: Colon polyp screening, history of colon polyps, none now. Moderate left colon diverticula, minor internal hemorrhoid. PLAN: To encourage the patient to take fiber supplements, avoid aspirin and aspirin-related products for the next 5 days because of the biopsies done during the EGD and to place the patient on PPI because of the findings of gastritis and fluconazole because of the findings of Kimberly esophagitis, which was moderate, the patient will be asked to follow up in the office in 1-2 weeks' time. Otherwise, resume previous medication. Procedure was done in the GI lab with assistance of the GI lab team and the patient will also be asked to avoid aspirin and aspirin-related products for the next 5 days. TID: [id number] RECEIPT: [id number] BILL/[place]
[2021-10-25 15:18] VITALS: BP 132/80
== END 2021-10-25 10:45 | disposition home or self-care (01) ==
LOC: GIO 08:08
DX: Z12.11 Encounter for screening for malignant neoplasm of colon (principal); R13.10 Dysphagia, unspecified; K22.2 Esophageal obstruction; K57.30 Diverticulosis of large intestine without perforation or abscess without bleeding; K64.8 Other hemorrhoids; K21.00 Gastro-esophageal reflux disease with esophagitis, without bleeding; K29.70 Gastritis, unspecified, without bleeding; I10 Essential (primary) hypertension; E66.01 Morbid (severe) obesity due to excess calories; G43.909 Migraine, unspecified, not intractable, without status migrainosus; I42.9 Cardiomyopathy, unspecified; J45.909 Unspecified asthma, uncomplicated; G47.30 Sleep apnea, unspecified; E11.9 Type 2 diabetes mellitus without complications; F41.9 Anxiety disorder, unspecified; Z86.010 Personal history of colon polyps; Z79.899 Other long term (current) drug therapy; Z90.711 Acquired absence of uterus with remaining cervical stump; Z90.722 Acquired absence of ovaries, bilateral; Z90.49 Acquired absence of other specified parts of digestive tract; Z98.891 History of uterine scar from previous surgery; Z72.89 Other problems related to lifestyle; Z98.890 Other specified postprocedural states; Z68.39 Body mass index [BMI] 39.0-39.9, adult
CPT/HCPCS: 43239; 43249; 45378; 82962; 88305; 88312; 88342; C1726; J2704; J3010; J7030